=== PATIENT | female | born 2000 | race African-American/Black ===

== ENCOUNTER 2022-11-20 12:27 | Emergency (ER) | payer MEDICAID, OTHER ==
[~2022-11-20] VITALS: Ht 177.8 cm; Wt 68.0 kg
[2022-11-20 14:13] LABS: Basophils # (auto) 0 10 ^3/uL (0-0.2); Basophils % (auto) 0.4 % (0.0-2.0); Eosinophils # (auto) 0 10 ^3/uL (0-0.8); Eosinophils % (auto) 0.1 % (0.0-7.0); Hematocrit 35.3 % (36.0-46.0); Hemoglobin 11.7 g/dL (12.2-16.2); Lymphocytes # (auto) 2.1 10 ^3/uL (0.4-5.4); Lymphocytes % (auto) 18.5 % (10.0-50.0); Mean Corpuscular Hemoglobin 29.8 pg (28.0-32.0); Mean Corpuscular Hgb Conc. 33.1 g/dL (32.0-36.0); Mean Corpuscular Volume 90.1 fL (80.0-100.0); Monocytes # (auto) 0.5 10 ^3/uL (0-1.3); Neutrophils # (auto) 8.8 10 ^3/uL (1.6-8.6); Red Blood Cells 3.91 10^6/uL (4.0-5.20); Red Cell Distribution Width 13.3 % (11.8-14.3); White Blood Cell 11.5 10^3/uL (4.4-10.8)
[2022-11-20 14:48] LABS: Albumin 4.3 g/dL (3.2-4.8); Alkaline Phosphatase 50 U/L (46-116); Anion Gap 7 (5-15); Aspartate Aminotransferase < 8 U/L (13-40); Bilirubin, Total 0.4 mg/dL (0.2-1.0); Calcium 9.5 mg/dL (8.7-10.4); Carbon Dioxide 26 mmol/L (20-30); Chloride 104 mmol/L (98-107); Glucose 77 mg/dL (74-106); Potassium 4.3 mmol/L (3.5-5.1); Sodium 137 mmol/L (136-145)
[2022-11-20 14:49] LABS: Total Protein 7.2 g/dL (5.7-8.2)
[2022-11-20 15:04] LABS: Alanine Aminotransferase < 9 U/L (7-40); BUN/Creatinine Ratio 8.8 (10.0-20.0); Blood Urea Nitrogen < 5 mg/dL (9-23)
[2022-11-20 15:55] LABS: Urine Bacteria NONE SEEN /hpf (None Seen); Urine Blood Negative /uL (Negative); Urine Clarity HAZY (Clear); Urine Color Colorless (Yellow); Urine Mucus FEW (None Seen); Urine Protein, UAD Negative (Negative); Urine Specific Gravity 1.008 (1.001-1.035); Urine Urobilinogen Normal (Negative); Urine WBC 15 /hpf (0 - 5); Urine pH 6.5 (5.0-8.0)
[2022-11-20 19:30] VITALS: PULSE 100; RESP 16; O2SAT 99
[2022-11-21] MEDS ORDERED: NITR-87 PO (00:10)
[2022-11-21] MEDS ORDERED: PREN-96 PO (00:10)
[2022-11-21 00:15] VITALS: BP 122/61; PULSE 70; RESP 15; TEMP 98.5; O2SAT 99
[2022-11-21] MEDS ORDERED: cefTRIAXone SOD 1,000 MG VL IM ONE (00:15)
== END 2022-11-21 00:32 | disposition home or self-care (01) ==
LOC: ER 12:27
DX: O23.42 Unspecified infection of urinary tract in pregnancy, second trimester (principal); R10.2 Pelvic and perineal pain; O99.012 Anemia complicating pregnancy, second trimester; O26.892 Other specified pregnancy related conditions, second trimester; R10.9 Unspecified abdominal pain; D72.829 Elevated white blood cell count, unspecified; Z3A.17 17 weeks gestation of pregnancy; Z79.899 Other long term (current) drug therapy
CPT/HCPCS: 36415; 76805; 80053; 81001; 81025; 84702; 85025; 96372; 99285; J0696